=== PATIENT | female | born 1975 | race Asian ===

== ENCOUNTER 2023-11-30 10:53 | Emergency (ER) | payer MEDICAID ==
[~2023-11-30] VITALS: Ht 149.9 cm; Wt 54.5 kg
[2023-11-30 11:27] VITALS: BP 109/68; PULSE 67; O2SAT 99
[2023-11-30] MEDS ORDERED: ketorolac trometh inj. 60 MG/2 ML VIAL IM ONE (11:45)
[2023-11-30] MEDS: ketorolac trometh. 30mg/ml inj. IM ONE (11:51)
[2023-11-30] MEDS: ketorolac tromethamine 15mg/ml inj. IM ONE (12:05)
[2023-11-30 12:08] VITALS: RESP 16; TEMP 98.5
== END 2023-11-30 12:05 | disposition home or self-care (01) ==
LOC: ER 10:53
DX: M25.562 Pain in left knee (principal)
CPT/HCPCS: 29530; 73564; 96372; 99284; J1885; A6449